=== PATIENT | male | born 1975 | race Caucasian/White ===

== ENCOUNTER → 2017-07-29 | Outpatient (CLI) | payer BC ==
--- NOTE | 2017-07-29 16:31 | US ---
EXAMINATION TYPE: US kidneys/renal and bladder DATE OF EXAM: 07/29/2017 COMPARISON: NONE CLINICAL HISTORY: 41-year-old male R94.4 Abnormal Renal Function. Elevated creatinine. Patient state s he is taking creatine, no symptoms. TECHNIQUE: Multiple sonographic images of the kidneys and bladder are obtained. FINDINGS: Right Kidney: 10.8 x 5.6 x 4.7 cm without hydronephrosis. Left Kidney: 10.6 x 5.2 x 6.5 cm with either pelviectasis or 2.5 x 1.2 cm parapelvic cyst. No gross abnormality of the urinary bladder. Both ureteral jets are visualized. IMPRESSION: No evident hydronephrosis. There is either mild pelviectasis, which could be transient, or a 2.5 cm p arapelvic cyst on the left. Both ureteral jets are seen.
== END | disposition home or self-care (01) ==
LOC: RADUSWWP 14:53
PROVIDERS: ATTEND Internal Medicine Geriatric Medicine
DX: R94.4 Abnormal results of kidney function studies (principal); Z96.0 Presence of urogenital implants
CPT/HCPCS: 76770

== ENCOUNTER → 2018-10-14 | Outpatient (CLI) | payer BC ==
[2018-10-14 11:10] LABS: Appearance,Urine Clear (Clear); Bilirubin,Urine Negative (Negative); Blood,Urine Negative (Negative); Color,Urine Yellow; Glucose,Urine (UA) Negative (Negative); Ketones,Urine Negative (Negative); Leukocyte Esterase,Urine Negative (Negative); Nitrite,Urine Negative (Negative); Protein,Urine Negative (Negative); Specific Gravity,Urine 1.017 (1.001-1.035); Urobilinogen,Urine <2.0 mg/dL (<2.0)
[2018-10-14 11:24] LABS: Basophils # (A) 0.1 k/uL (0-0.2); Basophils % (A) 2 %; Eosinophils # (A) 0.2 k/uL (0-0.7); Eosinophils % (A) 4 %; HCT 45.9 % (39.0-53.0); HGB 15.3 gm/dL (13.0-17.5); Lymphocytes # (A) 1.6 k/uL (1.0-4.8); Lymphocytes % (A) 40 %; MCH 30.6 pg (25.0-35.0); MCHC 33.4 g/dL (31.0-37.0); MCV 91.7 fL (80.0-100.0); Mean Platelet Volume 6.1; Monocytes # (A) 0.3 k/uL (0-1.0); Monocytes % (A) 7 %; Neutrophils # (A) 1.9 k/uL (1.3-7.7); Neutrophils % (A) 46 %; Platelet Count 333 k/uL (150-450); RBC 5.01 m/uL (4.30-5.90); RDW 12.5 % (11.5-15.5); WBC 4.1 k/uL (3.8-10.6)
[2018-10-14 17:02] LABS: Anion Gap 5.8 mmol/L (4.00-12.00); Calcium 9.6 mg/dL (8.7-10.3); Carbon Dioxide 30.2 mmol/L (21.6-31.8); Potassium 4.1 mmol/L (3.5-5.5)
== END ==
LOC: LABWHC1 10:00
PROVIDERS: ATTEND Internal Medicine Nephrology
DX: I10 Essential (primary) hypertension (principal); D64.9 Anemia, unspecified; N39.0 Urinary tract infection, site not specified
CPT/HCPCS: 36415; 80048; 81003; 85025

== ENCOUNTER → 2018-11-04 | Outpatient (CLI) | payer BC ==
--- NOTE | 2018-11-04 07:48 | US ---
EXAMINATION TYPE: US abdomen complete DATE OF EXAM: 11/04/2018 COMPARISON: renal US 2017 CLINICAL HISTORY: R10.9 Abdominal Pain. RUQ pain x 5 months EXAM MEASUREMENTS: Liver Length: 15.6 cm Gallbladder Wall: 0.1 cm CBD: 0.3 cm Spleen: 10.3 cm Right Kidney: 10.8 x 5.1 x 4.9 cm Left Kidney: 11.1 x 5.6 x 5.5 cm Pancreas: Obscured by overlying bowel gas Liver: wnl Gallbladder: wnl Evidence for sonographic Weiss's sign: No CBD: wnl Spleen: wnl Right Kidney: wnl Left Kidney: wnl Upper IVC: wnl Abd Aorta: wnl Sub optimal visualization overall due to large amounts of bowel gas. No pathology seen. IMPRESSION: 1. Limited exam due to overlying bowel gas demonstrates no definite abnormality.
== END | disposition home or self-care (01) ==
LOC: RADUSWWP 06:56
PROVIDERS: ATTEND Internal Medicine Geriatric Medicine
DX: R10.9 Unspecified abdominal pain (principal)
CPT/HCPCS: 76700

== ENCOUNTER 2022-01-11 12:21 | Emergency (ER) | payer BC ==
[2022-01-11 12:26] VITALS: BP 164/95; PULSE 60; RESP 18; TEMP 97.6
--- NOTE | 2022-01-11 12:49 | CT ---
EXAMINATION TYPE: CT brain wo con DATE OF EXAM: 01/11/2022 COMPARISON: None INDICATION: head injury DLP: 1169.4 mGycm, Automated exposure control for dose reduction was used. CONTRAST: None CT of the brain is performed utilizing 3 mm thick sections through the posterior fossa and 3 mm thick sections through the remaining calvarium. Study is performed within 24 hours of arrival to the hosp ital. No abnormal hyperdensity is present to suggest an acute intracranial hemorrhage. No mass lesion is evident. No acute infarcts are evident. There is a Virchow-Kashif space or old lacunar infarct left basal gangl ion. Ventricles and sulci are appropriate for the patient age. Paranasal sinuses and mastoid air cells within the [id number] are clear. No acute fractures are identified. IMPRESSIONS: 1. No acute intracranial process. MRI could be performed as clinically indicated.
--- NOTE | 2022-01-11 13:28 | ED ---
Head Injury HPI - General Chief complaint: Head Injury Stated complaint: Head injury Time Seen by Provider: 01/11/22 13:16 Source: patient, RN notes reviewed Mode of arrival: ambulatory Limitations: no limitations - History of Present Illness Initial comments: This is a 46-year-old male who presents to the emergency department for a head injury. 3 days ago while he was in his basement, he hit his head on a metal bar. Denies any loss of consciousness or nausea/vomiting. Patient states that since then, he has had photophobia, sensitivity to sound, a persistent headache, and difficulty concentrating. Patient denies any history of concussions. He has taken some Tylenol for his headache with little to no relief. States that he is not able to take NSAIDs due to his high blood pressure. MD Complaint: head pain Onset/Timin -: days(s) Loss of Consciousness: no Previous Trauma to this Area: No Place: home - Related Data Allergies/Adverse reactions: Allergies Allergy/AdvReac Type Severity Reaction Status Date / Time No Known Allergies Allergy Verified 01/11/22 12:26 Review of Systems ROS Statement: Those systems with pertinent positive or pertinent negative responses have been documented in the HPI. ROS Other: All systems not noted in ROS Statement are negative. Constitutional: Denies: fever, chills ENT: Denies: ear pain, throat pain Respiratory: Denies: cough, dyspnea Cardiovascular: Denies: chest pain, palpitations Gastrointestinal: Denies: abdominal pain, nausea, vomiting, diarrhea Musculoskeletal: Denies: back pain Skin: Denies: rash Neurological: Reports: headache Past Medical History Past Medical History: Hypertension History of Any Multi-Drug Resistant Organisms: None Reported Past Surgical History: Orthopedic Surgery Additional Past Surgical History / Comment(s): Vesectomy Past Psychological History: No Psychological Hx Reported Smoking Status: Never smoker Past Alcohol Use History: Occasional Past Drug Use History: None Reported General Exam Limitations: no limitations General appearance: alert, in no apparent distress Head exam: Present: atraumatic, normocephalic, normal inspection Eye exam: Present: normal appearance, PERRL, EOMI. Absent: scleral icterus, conjunctival injection, periorbital swelling Neck exam: Present: normal inspection. Absent: tenderness, meningismus, lymphadenopathy Respiratory exam: Present: normal lung sounds bilaterally. Absent: respiratory distress, wheezes, rales, rhonchi, stridor Cardiovascular Exam: Present: regular rate, normal rhythm, normal heart sounds. Absent: systolic murmur, diastolic murmur, rubs, gallop, clicks Neurological exam: Present: alert, oriented X3, CN II-XII intact, normal gait, reflexes normal. Absent: motor sensory deficit Psychiatric exam: Present: normal affect, normal mood Skin exam: Present: warm, dry, intact, normal color. Absent: rash Course Vital Signs 01/11/22 12:23 Temperature 97.6 F Pulse Rate 60 Respiratory 18 Rate Blood Pressure 164/95 O2 Sat by Pulse 98 Oximetry Medical Decision Making - Medical Decision Making This is a 46-year-old male who presents to the emergency department for a head injury. Computed tomography scan of the head obtained, this did not reveal any acute abnormalities. Patient advised that his symptoms are likely related to postconcussive syndrome. He should expect these symptoms to continue for several weeks. Instructed him to avoid any other activities that could put him at risk of additional head injuries, as back to back concussions are detrimental and can lead to . He expressed understanding. Advised Tylenol as needed for headaches. Return precautions reviewed in depth, the patient is instructed to return to the emergency department with any new, worsening, or concerning symptoms. Patient verbalized understanding. This case was discussed in detail with the attending ED physician. Presentation, findings, and treatment plan discussed in detail as well. - Radiology Data Radiology results: report reviewed, image reviewed Disposition Clinical Impression: Postconcussion syndrome Disposition: HOME SELF-CARE Instructions (If sedation given, give patient instructions): Concussion (ED), Post Concussion Syndrome (ED) Additional Instructions: Return to the emergency department with any new, worsening, or concerning sy mptoms. Follow up with your primary care provider as scheduled. Is patient prescribed a controlled substance at d/c from ED?: No Referrals: Isidoro Vargas MD [Primary Care Provider] - 1-2 days
== END 2022-01-11 13:50 | disposition home or self-care (01) ==
LOC: EC 12:21
DX: R51.9 Headache, unspecified (principal); H53.149 Visual discomfort, unspecified; F07.81 Postconcussional syndrome; I10 Essential (primary) hypertension; W22.8XXA Striking against or struck by other objects, initial encounter
CPT/HCPCS: 70450; 99283

== ENCOUNTER → 2022-01-22 | Outpatient (CLI) | payer BC ==
--- NOTE | 2022-01-22 20:01 | XR ---
EXAMINATION TYPE: XR lumbar spine 2 or 3V DATE OF EXAM: 01/22/2022 Comparison: None Clinical History: 46-year-old male M54.9 Back pain Findings: 5 lumbar type vertebral bodies. Hypertrophic facet arthropathy mid to lower lumbar spine. Somewhat sh ort appearance to the pedicles in the lower lumbar spine could reflect underlying congenital spinal c anal stenosis. Mild degenerative disc disease lower lumbar spine. Vertebral body heights are preserve d and alignment is maintained. Impression: 1. Hypertrophic facet arthropathy mid to lower lumbar spine. No malalignment. 2. Somewhat short appearance of the pedicles in the lower dorsal spine could reflect an underlying co ngenital spinal canal stenosis. 3. Mild degenerative disc disease lower lumbar spine.
== END | disposition home or self-care (01) ==
LOC: RADXRMAIN 15:12
PROVIDERS: ATTEND Internal Medicine Geriatric Medicine
DX: M47.816 Spondylosis without myelopathy or radiculopathy, lumbar region (principal); M51.36 Other intervertebral disc degeneration, lumbar region
CPT/HCPCS: 72100

== ENCOUNTER → 2023-10-03 | Outpatient (CLI) | payer BC ==
--- NOTE | 2023-10-03 19:54 | US ---
EXAMINATION TYPE: US kidneys/renal and bladder DATE OF EXAM: 10/03/2023 COMPARISON: US 2018, US 2017 CLINICAL INDICATION: Male, 48 years old with history of N20.0 KIDNEY STONE; Kidney stone per order. P ain. EXAM MEASUREMENTS: Right Kidney: 11.3 x 6.6 x 4.9 cm Left Kidney: 11.7 x 6.5 x 6.1 cm Right Kidney: No hydronephrosis or masses seen Left Kidney: *Anechoic, lobulated area seen at mid: 2.7 x 2.6 x 3.1 cm. Bladder: Appears wnl Bilateral Jets seen: Yes IMPRESSION: 1. Dilated mid left renal collecting system. Irregular cyst is within the differential. Follow-up is recommended. 2. Renal stones not identified at this time.
== END | disposition home or self-care (01) ==
LOC: RADUSWWP 16:16
PROVIDERS: ATTEND Internal Medicine Geriatric Medicine
DX: N20.0 Calculus of kidney (principal)
CPT/HCPCS: 76770